=== PATIENT | male | born 1970 | race Caucasian/White ===

== ENCOUNTER 2017-07-03 17:38 | Emergency (ER) | payer OTHER ==
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
[2017-07-03] MEDS ORDERED: KETOROLAC 30 MG/1 ML SDV IVP ONE (18:19)
[2017-07-03] MEDS ORDERED: IOPAMIDOL (ISOVUE 370) 100 ML BTL IV ONE ×2 (18:21→19:02)
[2017-07-03 18:56] LABS: PLATELET COUNT 201 10^3/uL (150-400)
[2017-07-03] MEDS ORDERED: HYDROCOD/APAP 5/325 PREPACK#6 BTL TAKEHOME ONE (20:39)
[2017-07-03] MEDS ORDERED: CYCLOBENZAPRINE 10MG PREPACK#3 BTL TAKEHOME ONE (20:39)
[2017-07-03 21:05] VITALS: BP 134/94
== END 2017-07-03 21:05 | disposition home or self-care (01) ==
DX: S16.1XXA Strain of muscle, fascia and tendon at neck level, initial encounter (principal); S09.90XA Unspecified injury of head, initial encounter; S39.92XA Unspecified injury of lower back, initial encounter; J45.909 Unspecified asthma, uncomplicated; F17.200 Nicotine dependence, unspecified, uncomplicated; V49.40XA Driver injured in collision with unspecified motor vehicles in traffic accident, initial encounter; Y92.410 Unspecified street and highway as the place of occurrence of the external cause; Y99.8 Other external cause status; Y93.89 Activity, other specified
CPT/HCPCS: 82947-QW; 96374; J1885; Q9967

== ENCOUNTER 2017-11-15 05:15 | Emergency (ER) | payer OTHER ==
[2017-11-15] MEDS ORDERED: LORazepam 1 MG TAB PO ONE (05:37)
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
[2017-11-15] MEDS ORDERED: chlordiazePOXIDE 25 MG CAP ONE (06:09)
[2017-11-15] MEDS ORDERED: chlordiazePOXIDE 25 MG CAP PO ONE (06:14)
[2017-11-15] MEDS ORDERED: CHLORDIAZEPOXIDE 25MG PREPK#6 BTL TAKEHOME ONE (06:39)
[2017-11-15 06:41] VITALS: BP 160/102
--- NOTE | 2017-11-16 03:53 | CPEKG ---
Test Reason : OPEN Blood Pressure : / mmHG Vent. Rate : 076 BPM Atrial Rate : 076 BPM P-R Int : 182 ms QRS Dur : 108 ms QT Int : 384 ms P-R-T Axes : 038 -25 036 degrees QTc Int : 432 ms Sinus rhythm Borderline left axis deviation ST elev, probable normal early repol pattern Confirmed by Nasir Smallwood ([id number] on 11/16/2017 3:52:56 AM Referred By: Confirmed By:Nasir Smallwood
== END 2017-11-15 06:47 | disposition home or self-care (01) ==
DX: F10.239 Alcohol dependence with withdrawal, unspecified (principal); R03.0 Elevated blood-pressure reading, without diagnosis of hypertension; F17.200 Nicotine dependence, unspecified, uncomplicated
CPT/HCPCS: 84484-PO